=== PATIENT | male | born 1975 | race Caucasian/White ===

== ENCOUNTER → 2020-07-29 | Emergency (ER) | payer OTHER ==
[~2020-07-29] VITALS: Ht 185.4 cm; Wt 72.6 kg
== END | disposition left against medical advice (07) ==
LOC: ER 16:44
DX: S01.82XA Laceration with foreign body of other part of head, initial encounter (principal); S10.81XA Abrasion of other specified part of neck, initial encounter; W18.09XA Striking against other object with subsequent fall, initial encounter; Y93.55 Activity, bike riding; Y92.488 Other paved roadways as the place of occurrence of the external cause; Y99.8 Other external cause status

== ENCOUNTER 2020-07-31 17:01 | Emergency (ER) | payer OTHER ==
[~2020-07-31] VITALS: Ht 185.4 cm; Wt 72.6 kg
== END 2020-08-01 03:44 | disposition designated cancer center or children's hospital (05) ==
LOC: ER 17:01
DX: S02.622A Fracture of subcondylar process of left mandible, initial encounter for closed fracture (principal); S02.621A Fracture of subcondylar process of right mandible, initial encounter for closed fracture; M47.892 Other spondylosis, cervical region; M27.2 Inflammatory conditions of jaws; Z20.828 Contact with and (suspected) exposure to other viral communicable diseases; B95.62 Methicillin resistant Staphylococcus aureus infection as the cause of diseases classified elsewhere; V19.88XA Pedal cyclist (driver) (passenger) injured in other specified transport accidents, initial encounter; Y93.89 Activity, other specified; Y92.89 Other specified places as the place of occurrence of the external cause; Y99.8 Other external cause status

== ENCOUNTER 2020-08-05 21:33 | Emergency (ER) | payer OTHER ==
[~2020-08-05] VITALS: Ht 182.9 cm; Wt 72.6 kg
[2020-08-05] MEDS ORDERED: MOTRIN (22:10)
== END 2020-08-05 23:53 | disposition home or self-care (01) ==
LOC: ER 21:33
DX: Z48.02 Encounter for removal of sutures (principal)